=== PATIENT | male | born 2005 | race Two or more races ===

== ENCOUNTER 2023-04-30 12:48 | Emergency (ER) | payer MEDICAID ==
[~2023-04-30] VITALS: Ht 165.1 cm; Wt 78.5 kg
[2023-04-30] MEDS ORDERED: LIDOCAINE VISCOUS 2% 15ML UD MT ONE (16:15)
[2023-04-30] MEDS ORDERED: MAALOX PLUS or MAALOX 30 ML PO ONE (16:15)
[2023-04-30 17:53] LABS: Urine Bacteria NONE SEEN /hpf (None Seen); Urine Blood Negative /uL (Negative); Urine Clarity Clear (Clear); Urine Color Yellow (Yellow); Urine Mucus FEW (None Seen); Urine Protein, UAD 1+ (Negative); Urine Specific Gravity 1.026 (1.001-1.035); Urine WBC 1 /hpf (0 - 3)
[2023-04-30 18:10] VITALS: BP 147/89; PULSE 65; RESP 16; TEMP 98.3; O2SAT 97
[2023-04-30] MEDS ORDERED: ONDANSETRON ODT 4 MG TAB PO ONE (20:00)
[2023-04-30 20:33] LABS: Basophils # (auto) 0 10 ^3/uL (0-0.2); Basophils % (auto) 0.5 % (0.0-2.0); Eosinophils # (auto) 0 10 ^3/uL (0-0.8); Eosinophils % (auto) 0.1 % (0.0-7.0); Hematocrit 49.3 % (41.0-53.0); Hemoglobin 16.6 g/dL (13.5-17.5); Lymphocytes # (auto) 2.3 10 ^3/uL (0.4-5.4); Lymphocytes % (auto) 21.2 % (10.0-50.0); Mean Corpuscular Hemoglobin 33.7 pg (28.0-32.0); Mean Corpuscular Hgb Conc. 33.6 g/dL (32.0-36.0); Mean Corpuscular Volume 100.2 fL (80.0-100.0); Monocytes # (auto) 1.6 10 ^3/uL (0-1.3); Neutrophils # (auto) 6.8 10 ^3/uL (1.6-8.6); Neutrophils % (auto) 63.2 % (37.0-80.0); Nucleated Red Blood Cells % 0.1 %; Red Blood Cells 4.92 10^6/uL (4.5-5.90); Red Cell Distribution Width 14.9 % (11.8-14.3); White Blood Cell 10.7 10^3/uL (4.4-10.8)
[2023-04-30] MEDS ORDERED: AMOX875T3 PO (20:45)
[2023-04-30] MEDS ORDERED: OMEP-434 PO (20:45)
[2023-04-30 20:52] LABS: Alanine Aminotransferase 19 U/L (7-40); Albumin 5.1 g/dL (3.2-4.8); Alkaline Phosphatase 99 U/L (46-116); Anion Gap 9 (5-15); Aspartate Aminotransferase 17 U/L (13-40); BUN/Creatinine Ratio 6.5 (10.0-20.0); Bilirubin, Total 0.6 mg/dL (0.2-1.0); Blood Urea Nitrogen 7 mg/dL (9-23); Calcium 9.4 mg/dL (8.5-10.1); Carbon Dioxide 27 mmol/L (20-30); Chloride 101 mmol/L (98-107); Glucose 96 mg/dL (74-106); Potassium 3.8 mmol/L (3.5-5.1); Sodium 137 mmol/L (136-145); Total Protein 8.4 g/dL (5.7-8.2)
[2023-04-30] MEDS ORDERED: cefTRIAXone SOD 1,000 MG VL IM ONE (21:30)
[2023-05-01] MEDS ORDERED: METO-281 PO ×3 (20:41→23:41)
== END 2023-04-30 22:48 | disposition home or self-care (01) ==
LOC: ER 12:48
DX: J02.9 Acute pharyngitis, unspecified (principal); K29.00 Acute gastritis without bleeding
CPT/HCPCS: 36415; 74176; 80053; 81001; 85025; 96372; 99285; J0696; Q0162

== ENCOUNTER 2023-05-01 15:16 | Emergency (ER) | payer MEDICAID ==
[~2023-05-01] VITALS: Ht 162.6 cm; Wt 76.7 kg
[~2023-05-01 15:16] MED LIST: AMOX875T3 PO; OMEP-434 PO
[2023-05-01] MEDS ORDERED: SODIUM CHLORIDE 0.9% 1,000 ML IV ONE (17:00)
[2023-05-01] MEDS ORDERED: METOCLOPRAMIDE HCL 5MG/ml INJ 2ml VIAL IV ONE (17:00)
[2023-05-01] MEDS ORDERED: MAALOX PLUS or MAALOX 30 ML PO ONE (17:00)
[2023-05-01] MEDS ORDERED: LIDOCAINE VISCOUS 2% 15ML UD MT ONE (17:00)
[2023-05-01] MEDS ORDERED: KETOROLAC TROMETH 30 MG/ML 1ML VIAL IV ONE (18:00)
[2023-05-01 19:08] LABS: Urine Bacteria NONE SEEN /hpf (None Seen); Urine Blood Negative /uL (Negative); Urine Clarity Clear (Clear); Urine Color Yellow (Yellow); Urine Mucus FEW (None Seen); Urine Protein, UAD 1+ (Negative); Urine Specific Gravity 1.042 (1.001-1.035); Urine WBC 1 /hpf (0 - 3)
[2023-05-01 19:14] LABS: Amphetamine Screen, Urine Neg (NEGATIVE); Barbiturate Scree,Urine Neg (NEGATIVE); Benzodiazephine Screen, Urine Neg (NEGATIVE); Cannabinoid Screen, Urine Pos (NEGATIVE); Cocaine Screen, Urine Neg (NEGATIVE); Opiate Scree,Urine Neg (NEGATIVE); Phencyclidine Screen, Urine Neg (NEGATIVE)
[2023-05-01] MEDS ORDERED: METO-281 PO ×3 (20:41→23:41)
[2023-05-01 22:04] VITALS: BP 123/69; PULSE 58; RESP 20; TEMP 98.2; O2SAT 98
== END 2023-05-01 22:16 | disposition home or self-care (01) ==
LOC: ER 15:16
DX: R11.15 Cyclical vomiting syndrome unrelated to migraine (principal); Z79.899 Other long term (current) drug therapy
CPT/HCPCS: 80307; 81001; 96361; 96374; 96375; 99284; J1885; J2765; J7030